=== PATIENT | male | born 1960 | race Caucasian/White ===

== ENCOUNTER 2021-03-31 10:36 | Inpatient (IN) ==
[2021-03-31] MEDS ORDERED: ASPIRIN 325 MG TABLET PO STA (11:04)
[2021-03-31] MEDS ORDERED: SODIUM CHLORIDE 0.9% 500 ML IV STA (11:04)
[2021-03-31 11:30] LABS: Albumin 2.9 G/DL (3.4-5.0); Bilirubin,Total 0.5 MG/DL (0.20-1.00); Calcium 8.7 MG/DL (8.5-10.1); Osmolality,Calculated 274.4 MOS/KG (273-304); Potassium 4.8 MMOL/L (3.5-5.1); Total Protein 6.5 G/DL (6.4-8.2)
[2021-03-31 13:01] LABS: Basophils % 0.1 % (0.0-0.8); Eosinophils # 0.1 10*3/uL (0.0-0.87); Eosinophils % 0.9 % (0.00-10.9); Hematocrit 31.7 VOL% (42.0-52.0); Hemoglobin 9.6 GM/DL (14.0-18.0); Immature Granulocytes % 0.9 %; Immature Granulocytes Absolute 0.12 #; Lymphocytes # 5.3 10*3/uL (1.4-4.0); Lymphocytes % 39.6 % (21.2-54.2); Mean Corpuscular HGB Conc 30.3 GM/DL (32-36); Mean Corpuscular Volume 102.3 FL (87-102); Mean Platelet Volume 9.4 FL (9.6-12.0); Monocytes % 8.6 % (1.7-12.7); Neutrophils % 49.9 % (38.7-73.9); Platelet Count 173 T/CUMM (130-400); Red Cell Distribution Width 15.9 % (9.3-17.3); White Blood Count 13.4 T/CUMM (4-12)
[2021-03-31 13:14] LABS: PT Patient Result 11.5 SECS (10.5-12.0)
[2021-03-31] MEDS ORDERED: VANCOMYCIN INJ 1,000 MG in SODIUM CHLORIDE 0.9% 250 ML IV STA (13:27)
[2021-03-31] MEDS ORDERED: PIPERACILLIN/TAZOBACTAM 3,375 MG in SODIUM CHLORIDE 0.9% 100 ML IV STA (13:27)
[2021-03-31] MEDS ORDERED: DEXTROSE 50% 25 GM/50 ML VIAL IV PRN (15:05)
[2021-03-31] MEDS ORDERED: guaiFENesin/DM ER 600-30 MG TABLET PO PRN (15:05)
[2021-03-31] MEDS ORDERED: DOCUSATE SODIUM 100 MG CAPSULE PO PRN (15:05)
[2021-03-31] MEDS ORDERED: GLUCAGON 1 MG VIAL IM PRN (15:05)
[2021-03-31] MEDS: ALBUTEROL 2.5 MG/3 ML NEB RESP TX SCH (20:12)
[2021-03-31] MEDS ORDERED: VANCOMYCIN INJ 1,000 MG in SODIUM CHLORIDE 0.9% 250 ML IV ONE (21:00)
[2021-04-01 00:34] LABS: Bacteria,Urine Occasional /HPF (Few); Bilirubin,Urine Negative (Negative); Blood, Urine Negative (Negative); Glucose,Urine (UA) Negative (Negative); Hyaline Casts,Urine 4 /LPF (0-3); Ketones,Urine Negative (Negative); Mucus,Urine Occasional /LPF (Occasional); Nitrite,Urine Negative (Negative); Protein,Urine 30 MG/DL; RBC,Urine 3 /HPF (0-4); Urine Appearance Slightly Hazy (Clear); Urine Color Yellow (Yellow); Urine Specific Gravity 1.012 (1.001-1.035); Urine Urobilinogen < 2.0 EU/DL (0.2-1.0)
[2021-04-01] MEDS: ALBUTEROL 2.5 MG/3 ML NEB RESP TX SCH ×4 (01:38→19:32)
[2021-04-01] MEDS: PIPERACILLIN/TAZOBACTAM 3,375 MG in SODIUM CHLORIDE 0.9% 100 ML IV SCH ×2 (02:15→12:48)
[2021-04-01 05:00] LABS: Basophils % 0.2 % (0.0-0.8); Eosinophils # 0.1 10*3/uL (0.0-0.87); Hematocrit 27.5 VOL% (42.0-52.0); Hemoglobin 8.3 GM/DL (14.0-18.0); Immature Granulocytes % 0.8 %; Immature Granulocytes Absolute 0.09 #; Lymphocytes # 5.1 10*3/uL (1.4-4.0); Lymphocytes % 44.3 % (21.2-54.2); Mean Corpuscular HGB Conc 30.2 GM/DL (32-36); Mean Corpuscular Volume 101.5 FL (87-102); Mean Platelet Volume 9.3 FL (9.6-12.0); Monocytes % 9.4 % (1.7-12.7); Neutrophils % 44.3 % (38.7-73.9); Platelet Count 173 T/CUMM (130-400); Red Blood Count 2.71 MC/CUMM (3.8-5.5); Red Cell Distribution Width 15.8 % (9.3-17.3); White Blood Count 11.5 T/CUMM (4-12)
[2021-04-01 05:36] LABS: Potassium 4.4 MMOL/L (3.5-5.1)
[2021-04-01] MEDS ORDERED: MORPHINE 2 MG/1 ML SYRINGE IV ONE (08:30)
[2021-04-02] MEDS: PIPERACILLIN/TAZOBACTAM 3,375 MG in SODIUM CHLORIDE 0.9% 100 ML IV SCH ×2 (00:45→14:01)
[2021-04-02] MEDS: ALBUTEROL 2.5 MG/3 ML NEB RESP TX SCH ×4 (01:00→19:14)
[2021-04-02] MEDS: ACETAMINOPHEN 325 MG TABLET PO PRN (04:21)
[2021-04-02 05:50] LABS: Basophils % 0.2 % (0.0-0.8); Eosinophils # 0.4 10*3/uL (0.0-0.87); Eosinophils % 2.2 % (0.00-10.9); Hematocrit 29.1 VOL% (42.0-52.0); Hemoglobin 8.9 GM/DL (14.0-18.0); Immature Granulocytes % 0.8 %; Immature Granulocytes Absolute 0.13 #; Lymphocytes # 5.7 10*3/uL (1.4-4.0); Lymphocytes % 34.8 % (21.2-54.2); Mean Corpuscular HGB Conc 30.6 GM/DL (32-36); Mean Corpuscular Volume 100.7 FL (87-102); Mean Platelet Volume 9.3 FL (9.6-12.0); Monocytes % 6.8 % (1.7-12.7); Neutrophils % 55.2 % (38.7-73.9); Platelet Count 227 T/CUMM (130-400); Red Blood Count 2.89 MC/CUMM (3.8-5.5); Red Cell Distribution Width 15.7 % (9.3-17.3); White Blood Count 16.3 T/CUMM (4-12)
[2021-04-02 06:18] LABS: Eosinophils 1 % (0-10); Lymphocytes 33 % (20-55); Segmented Neutrophils 64 % (50-85); Total Cells Counted 100
[2021-04-02 06:19] LABS: Atypical Lymphocytes Few; Hypochromasia 1+; Microcytosis 1+; Platelet Estimate Normal
[2021-04-02 06:20] LABS: Calcium 8.5 MG/DL (8.5-10.1); Osmolality,Calculated 280.2 MOS/KG (273-304); Potassium 4.6 MMOL/L (3.5-5.1)
[2021-04-02] MEDS ORDERED: HEPARIN 10,000 UNIT/10 ML VIAL IV PRN (11:17)
[2021-04-02] MEDS ORDERED: VANCOMYCIN INJ 1,000 MG in SODIUM CHLORIDE 0.9% 250 ML IV ONE (13:00)
[2021-04-02] MEDS ORDERED: VANCOMYCIN INJ 750 MG in SODIUM CHLORIDE 0.9% 250 ML IV PRN (17:00)
[2021-04-02] MEDS: QUEtiapine 25 MG TABLET PO SCH (23:40)
[2021-04-03] MEDS: ALBUTEROL 2.5 MG/3 ML NEB RESP TX SCH ×4 (00:41→20:43)
[2021-04-03] MEDS: PIPERACILLIN/TAZOBACTAM 3,375 MG in SODIUM CHLORIDE 0.9% 100 ML IV SCH (02:40)
[2021-04-03 08:00] LABS: Basophils % 0.2 % (0.0-0.8); Eosinophils # 0.3 10*3/uL (0.0-0.87); Eosinophils % 3.4 % (0.00-10.9); Hematocrit 27.3 VOL% (42.0-52.0); Hemoglobin 8.3 GM/DL (14.0-18.0); Immature Granulocytes % 0.5 %; Immature Granulocytes Absolute 0.05 #; Lymphocytes # 4.1 10*3/uL (1.4-4.0); Lymphocytes % 40.6 % (21.2-54.2); Mean Corpuscular HGB Conc 30.4 GM/DL (32-36); Mean Corpuscular Volume 102.2 FL (87-102); Mean Platelet Volume 9.4 FL (9.6-12.0); Neutrophils % 46.3 % (38.7-73.9); Platelet Count 215 T/CUMM (130-400); Red Blood Count 2.67 MC/CUMM (3.8-5.5); Red Cell Distribution Width 15.7 % (9.3-17.3)
[2021-04-03 08:28] LABS: Calcium 8.4 MG/DL (8.5-10.1); Osmolality,Calculated 282.5 MOS/KG (273-304)
[2021-04-03] MEDS: ACETAMINOPHEN 325 MG TABLET PO PRN (09:01)
[2021-04-03] MEDS ORDERED: VANCOMYCIN INJ 1,000 MG in SODIUM CHLORIDE 0.9% 250 ML IV PRN (14:22)
[2021-04-03] MEDS ORDERED: VANCOMYCIN INJ 1,000 MG in SODIUM CHLORIDE 0.9% 250 ML IV ONE (17:00)
[2021-04-03] MEDS: ONDANSETRON 4 MG/2 ML VIAL IV PRN (17:04)
[2021-04-03] MEDS: QUEtiapine 25 MG TABLET PO SCH (21:32)
[2021-04-04] MEDS: ALBUTEROL 2.5 MG/3 ML NEB RESP TX SCH ×4 (01:00→19:52)
[2021-04-04] MEDS ORDERED: VANCOMYCIN INJ 1,000 MG in SODIUM CHLORIDE 0.9% 250 ML IV ONE (11:00)
[2021-04-04] MEDS: ONDANSETRON 4 MG/2 ML VIAL IV PRN (20:47)
[2021-04-04] MEDS: QUEtiapine 25 MG TABLET PO SCH (20:47)
[2021-04-04] MEDS: ACETAMINOPHEN 325 MG TABLET PO PRN (21:57)
[2021-04-05] MEDS: ALBUTEROL 2.5 MG/3 ML NEB RESP TX SCH ×3 (01:00→13:25)
[2021-04-05 05:20] LABS: Basophils # 0.1 10*3/uL (0.0-0.2); Basophils % 0.5 % (0.0-0.8); Eosinophils # 0.4 10*3/uL (0.0-0.87); Eosinophils % 3.7 % (0.00-10.9); Hematocrit 28.4 VOL% (42.0-52.0); Hemoglobin 8.7 GM/DL (14.0-18.0); Immature Granulocytes % 0.4 %; Immature Granulocytes Absolute 0.04 #; Lymphocytes # 4.3 10*3/uL (1.4-4.0); Lymphocytes % 40.8 % (21.2-54.2); Mean Corpuscular HGB Conc 30.6 GM/DL (32-36); Mean Corpuscular Volume 101.4 FL (87-102); Mean Platelet Volume 8.9 FL (9.6-12.0); Monocytes % 7.1 % (1.7-12.7); Neutrophils % 47.5 % (38.7-73.9); Platelet Count 247 T/CUMM (130-400); Red Cell Distribution Width 14.9 % (9.3-17.3); White Blood Count 10.5 T/CUMM (4-12)
[2021-04-05 05:39] LABS: Calcium 8.5 MG/DL (8.5-10.1); Potassium 4.1 MMOL/L (3.5-5.1)
[2021-04-05] MEDS: ACETAMINOPHEN 325 MG TABLET PO PRN (16:25)
[2021-04-05] MEDS: QUEtiapine 25 MG TABLET PO SCH (22:09)
[2021-04-06 08:33] LABS: Basophils % 0.3 % (0.0-0.8); Eosinophils # 0.4 10*3/uL (0.0-0.87); Hematocrit 26.8 VOL% (42.0-52.0); Hemoglobin 8.4 GM/DL (14.0-18.0); Immature Granulocytes % 0.2 %; Immature Granulocytes Absolute 0.02 #; Lymphocytes # 4.4 10*3/uL (1.4-4.0); Lymphocytes % 35.8 % (21.2-54.2); Mean Corpuscular HGB Conc 31.3 GM/DL (32-36); Mean Corpuscular Volume 101.1 FL (87-102); Mean Platelet Volume 9.1 FL (9.6-12.0); Monocytes % 6.3 % (1.7-12.7); Neutrophils % 54.4 % (38.7-73.9); Platelet Count 274 T/CUMM (130-400); Red Blood Count 2.65 MC/CUMM (3.8-5.5); Red Cell Distribution Width 14.7 % (9.3-17.3); White Blood Count 12.3 T/CUMM (4-12)
[2021-04-06 08:55] LABS: Calcium 9.1 MG/DL (8.5-10.1); Potassium 3.7 MMOL/L (3.5-5.1)
[2021-04-06] MEDS ORDERED: VANCOMYCIN INJ 1,000 MG in SODIUM CHLORIDE 0.9% 250 ML IV ONE (12:00)
[2021-04-06] MEDS: ONDANSETRON 4 MG/2 ML VIAL IV PRN (16:51)
[2021-04-06] MEDS: QUEtiapine 25 MG TABLET PO SCH (22:04)
[2021-04-07 05:43] LABS: Basophils # 0.1 10*3/uL (0.0-0.2); Basophils % 0.5 % (0.0-0.8); Eosinophils # 0.4 10*3/uL (0.0-0.87); Eosinophils % 4.2 % (0.00-10.9); Hematocrit 29.5 VOL% (42.0-52.0); Immature Granulocytes % 0.2 %; Immature Granulocytes Absolute 0.02 #; Lymphocytes # 4.6 10*3/uL (1.4-4.0); Lymphocytes % 49.3 % (21.2-54.2); Mean Corpuscular HGB Conc 30.5 GM/DL (32-36); Mean Corpuscular Volume 101.4 FL (87-102); Mean Platelet Volume 9.2 FL (9.6-12.0); Monocytes % 8.4 % (1.7-12.7); Neutrophils % 37.4 % (38.7-73.9); Platelet Count 280 T/CUMM (130-400); Red Blood Count 2.91 MC/CUMM (3.8-5.5); Red Cell Distribution Width 14.6 % (9.3-17.3); White Blood Count 9.3 T/CUMM (4-12)
[2021-04-07 05:56] LABS: Calcium 8.9 MG/DL (8.5-10.1); Osmolality,Calculated 273.8 MOS/KG (273-304); Potassium 3.5 MMOL/L (3.5-5.1)
[2021-04-07 06:43] LABS: Anisocytosis 1+; Eosinophils 4 % (0-10); Lymphocytes 47 % (20-55); Platelet Estimate Normal; Segmented Neutrophils 41 % (50-85); Smudge Cells Few; Total Cells Counted 100
[2021-04-07 06:44] LABS: Macrocytosis 1+
[2021-04-07] MEDS: QUEtiapine 25 MG TABLET PO SCH (20:36)
[2021-04-08] MEDS ORDERED: FUROSEMIDE 40 MG/4 ML VIAL IV ONE (09:48)
[2021-04-08] MEDS: QUEtiapine 25 MG TABLET PO SCH (22:54)
[2021-04-09 04:51] LABS: Basophils % 0.4 % (0.0-0.8); Eosinophils # 0.3 10*3/uL (0.0-0.87); Eosinophils % 3.3 % (0.00-10.9); Hematocrit 28.3 VOL% (42.0-52.0); Hemoglobin 8.9 GM/DL (14.0-18.0); Immature Granulocytes % 0.4 %; Immature Granulocytes Absolute 0.04 #; Lymphocytes # 5.4 10*3/uL (1.4-4.0); Lymphocytes % 54.3 % (21.2-54.2); Mean Corpuscular HGB Conc 31.4 GM/DL (32-36); Mean Corpuscular Volume 98.6 FL (87-102); Mean Platelet Volume 9.2 FL (9.6-12.0); Monocytes % 9.3 % (1.7-12.7); Neutrophils % 32.3 % (38.7-73.9); Platelet Count 271 T/CUMM (130-400); Red Blood Count 2.87 MC/CUMM (3.8-5.5)
[2021-04-09 05:37] LABS: Eosinophils 4 % (0-10); Lymphocytes 47 % (20-55); Segmented Neutrophils 38 % (50-85); Total Cells Counted 100
[2021-04-09 05:38] LABS: Atypical Lymphocytes Few; Hypochromasia 1+; Microcytosis 1+
[2021-04-09 05:39] LABS: Platelet Estimate Normal
[2021-04-09 05:44] LABS: Calcium 8.5 MG/DL (8.5-10.1); Potassium 3.5 MMOL/L (3.5-5.1)
[2021-04-09] MEDS ORDERED: VANCOMYCIN INJ 1,000 MG in SODIUM CHLORIDE 0.9% 250 ML IV ONE (17:00)
[2021-04-09] MEDS: QUEtiapine 25 MG TABLET PO SCH (21:47)
[2021-04-10 06:20] LABS: Basophils # 0.1 10*3/uL (0.0-0.2); Basophils % 0.6 % (0.0-0.8); Eosinophils # 0.3 10*3/uL (0.0-0.87); Eosinophils % 2.6 % (0.00-10.9); Hematocrit 31.1 VOL% (42.0-52.0); Hemoglobin 9.7 GM/DL (14.0-18.0); Immature Granulocytes % 0.2 %; Immature Granulocytes Absolute 0.02 #; Lymphocytes # 5.4 10*3/uL (1.4-4.0); Lymphocytes % 51.6 % (21.2-54.2); Mean Corpuscular HGB Conc 31.2 GM/DL (32-36); Mean Platelet Volume 9.2 FL (9.6-12.0); Monocytes % 9.4 % (1.7-12.7); Neutrophils % 35.6 % (38.7-73.9); Platelet Count 229 T/CUMM (130-400); Red Blood Count 3.14 MC/CUMM (3.8-5.5); White Blood Count 10.4 T/CUMM (4-12)
[2021-04-10 06:42] LABS: Calcium 8.8 MG/DL (8.5-10.1); Eosinophils 1 % (0-10); Lymphocytes 53 % (20-55); Osmolality,Calculated 274.8 MOS/KG (273-304); Potassium 3.6 MMOL/L (3.5-5.1); Segmented Neutrophils 37 % (50-85); Total Cells Counted 100
[2021-04-10 06:43] LABS: Atypical Lymphocytes Few; Hypochromasia 1+; Microcytosis 1+; Platelet Estimate Normal
[2021-04-10] MEDS: QUEtiapine 25 MG TABLET PO SCH (20:49)
[2021-04-11] MEDS ORDERED: VANCOMYCIN INJ 1,000 MG in SODIUM CHLORIDE 0.9% 250 ML IV ONE (17:00)
[2021-04-11] MEDS: QUEtiapine 25 MG TABLET PO SCH (20:43)
[2021-04-12] MEDS: QUEtiapine 25 MG TABLET PO SCH (21:38)
[2021-04-13 08:22] VITALS: BP 116/87
[2021-04-13] MEDS ORDERED: VANCOMYCIN INJ 1,000 MG in SODIUM CHLORIDE 0.9% 250 ML IV ONE (10:00)
== END 2021-04-13 13:40 | disposition home or self-care (01) | DRG 193 ==
LOC: EDBD → EDUNIT# → N.ED 10:36 → SUATTDRO 15:05 → N.EDINP 15:05 → N.5E 15:52
PROVIDERS: ADMIT Internal Medicine Nephrology; ATTEND Internal Medicine